=== PATIENT | male | born 1970 | race Caucasian/White ===

== ENCOUNTER 2017-09-04 14:59 | Outpatient (RCR) | payer MEDICARE, MEDICAID, SELFPAY ==
[2017-09-04 17:26] LABS: Absolute Neutrophil Count 2.9 X10^3/uL (2.0-7.7); Basophil# 0.01 X10^3/uL; Basophil% 0.3 % (0-1); Hematocrit 40.2 % (40-54); Hemoglobin 13.1 g/dl (13.0-16.5); Lymphocyte % 20.6 % (19-41); Mean Corp Hgb Conc 32.6 g/gl (32-36); Mean Corpuscular Hgb 28.1 pg (27.0-32.0); Mean Corpuscular Volume 86.1 fL (80-94); Mean Platelet Vol. 9.6 fl (6.2-12.0); Monocyte# 0.23 X10^3/uL; Monocyte% 5.9 % (0-10); Neutrophil # 2.85 X10^3/uL (2.7-7.7); Neutrophil % 73.2 % (47-70); Platelet Count 95 K/mm3 (150-450); RBC Distribution Width CV 14.4 % (11.6-14.6); Red Blood Count 4.67 M/mm3 (4.6-6.2); White Blood Count 3.9 K/mm3 (4.4-11.0)
[2017-09-04 17:30] LABS: POSITIVE COUNT NO; POSITIVE DIFFERENTIAL NO; POSITIVE MORPHOLOGY NO
== END 2017-09-04 15:30 | disposition home or self-care (01) ==
LOC: LAB 14:59
PROVIDERS: Family Provider Family Medicine; PCP Family Medicine; Visit Provider Psychiatry & Neurology Psychiatry
DX: Z79.899 Other long term (current) drug therapy (principal)
CPT/HCPCS: 36415; 85025

== ENCOUNTER 2017-09-15 13:32 | Outpatient (RCR) | payer MEDICARE, MEDICAID, SELFPAY ==
[2017-09-15 15:04] LABS: Absolute Lymphocyte Count 0.64 X10^3/ul (0.83-4.51); Absolute Neutrophil Count 1.8 X10^3/uL (2.0-7.7); Basophil# 0.01 X10^3/uL; Basophil% 0.4 % (0-1); Hematocrit 39.5 % (40-54); Hemoglobin 13.1 g/dl (13.0-16.5); Lymphocyte # 0.64 X10^3/ul (4.0); Lymphocyte % 23.9 % (19-41); Mean Corp Hgb Conc 33.2 g/gl (32-36); Mean Corpuscular Hgb 28.5 pg (27.0-32.0); Mean Corpuscular Volume 85.9 fL (80-94); Mean Platelet Vol. 10.2 fl (6.2-12.0); Monocyte# 0.22 X10^3/uL; Monocyte% 8.2 % (0-10); Neutrophil # 1.81 X10^3/uL (2.7-7.7); Neutrophil % 67.5 % (47-70); Platelet Count 107 K/mm3 (150-450); RBC Distribution Width CV 14.4 % (11.6-14.6); RBC Distribution Width SD 44.4 fl (35.1-43.9); White Blood Count 2.7 K/mm3 (4.4-11.0)
[2017-09-15 15:10] LABS: POSITIVE COUNT NO; POSITIVE DIFFERENTIAL NO; POSITIVE MORPHOLOGY NO
== END 2017-09-15 14:00 | disposition home or self-care (01) ==
LOC: LAB 13:32
PROVIDERS: Family Provider Family Medicine; PCP Family Medicine; Visit Provider Psychiatry & Neurology Psychiatry
DX: Z79.899 Other long term (current) drug therapy (principal)
CPT/HCPCS: 36415; 85025

== ENCOUNTER 2017-10-21 13:40 | Outpatient (RCR) | payer MEDICARE, MEDICAID, SELFPAY ==
[2017-10-21 14:08] LABS: Absolute Lymphocyte Count 0.75 X10^3/ul (0.83-4.51); Absolute Neutrophil Count 2.5 X10^3/uL (2.0-7.7); Basophil# 0.02 X10^3/uL; Basophil% 0.6 % (0-1); Hematocrit 39.6 % (40-54); Hemoglobin 13.2 g/dl (13.0-16.5); Lymphocyte # 0.75 X10^3/ul (4.0); Lymphocyte % 21.8 % (19-41); Mean Corp Hgb Conc 33.3 g/gl (32-36); Mean Corpuscular Hgb 28.6 pg (27.0-32.0); Mean Corpuscular Volume 85.9 fL (80-94); Mean Platelet Vol. 10.4 fl (6.2-12.0); Monocyte% 5.8 % (0-10); Neutrophil # 2.47 X10^3/uL (2.7-7.7); Neutrophil % 71.8 % (47-70); Platelet Count 102 K/mm3 (150-450); RBC Distribution Width CV 14.8 % (11.6-14.6); RBC Distribution Width SD 45.2 fl (35.1-43.9); Red Blood Count 4.61 M/mm3 (4.6-6.2); White Blood Count 3.4 K/mm3 (4.4-11.0)
[2017-10-21 14:09] LABS: POSITIVE COUNT NO; POSITIVE DIFFERENTIAL NO; POSITIVE MORPHOLOGY NO
== END 2017-10-21 14:00 | disposition home or self-care (01) ==
LOC: LAB 13:40
PROVIDERS: Family Provider Family Medicine; PCP Family Medicine; Visit Provider Psychiatry & Neurology Psychiatry
DX: Z79.899 Other long term (current) drug therapy (principal); F19.10 Other psychoactive substance abuse, uncomplicated; R53.83 Other fatigue
CPT/HCPCS: 36415; 85025

== ENCOUNTER 2017-11-17 13:06 | Outpatient (RCR) | payer MEDICARE, MEDICAID, SELFPAY ==
[2017-11-17 13:40] LABS: Absolute Neutrophil Count 2.1 X10^3/uL (2.0-7.7); Basophil# 0.01 X10^3/uL; Basophil% 0.3 % (0-1); Hematocrit 41.3 % (40-54); Hemoglobin 13.4 g/dl (13.0-16.5); Lymphocyte % 25.9 % (19-41); Mean Corp Hgb Conc 32.4 g/gl (32-36); Mean Corpuscular Volume 86.4 fL (80-94); Mean Platelet Vol. 9.7 fl (6.2-12.0); Monocyte# 0.15 X10^3/uL; Monocyte% 4.9 % (0-10); Neutrophil # 2.13 X10^3/uL (2.7-7.7); Neutrophil % 68.9 % (47-70); Platelet Count 95 K/mm3 (150-450); RBC Distribution Width CV 14.7 % (11.6-14.6); RBC Distribution Width SD 46.5 fl (35.1-43.9); Red Blood Count 4.78 M/mm3 (4.6-6.2); White Blood Count 3.1 K/mm3 (4.4-11.0)
[2017-11-17 13:41] LABS: POSITIVE COUNT NO; POSITIVE DIFFERENTIAL NO; POSITIVE MORPHOLOGY NO
== END 2017-11-17 14:00 | disposition home or self-care (01) ==
LOC: LAB 13:06
PROVIDERS: Family Provider Family Medicine; PCP Family Medicine; Visit Provider Psychiatry & Neurology Psychiatry
DX: Z79.899 Other long term (current) drug therapy (principal)
CPT/HCPCS: 36415; 85025

== ENCOUNTER 2018-01-06 13:18 | Outpatient (RCR) | payer MEDICARE, MEDICAID, SELFPAY ==
[2018-01-06 14:10] LABS: Absolute Lymphocyte Count 0.94 X10^3/ul (0.83-4.51); Absolute Neutrophil Count 1.9 X10^3/uL (2.0-7.7); Basophil# 0.01 X10^3/uL; Basophil% 0.3 % (0-1); Hemoglobin 12.8 g/dl (13.0-16.5); Lymphocyte # 0.94 X10^3/ul (4.0); Lymphocyte % 31.9 % (19-41); Mean Corp Hgb Conc 32.8 g/gl (32-36); Mean Corpuscular Hgb 28.3 pg (27.0-32.0); Mean Corpuscular Volume 86.3 fL (80-94); Mean Platelet Vol. 9.6 fl (6.2-12.0); Monocyte# 0.13 X10^3/uL; Monocyte% 4.4 % (0-10); Neutrophil # 1.87 X10^3/uL (2.7-7.7); Neutrophil % 63.4 % (47-70); Platelet Count 87 K/mm3 (150-450); RBC Distribution Width CV 14.3 % (11.6-14.6); Red Blood Count 4.52 M/mm3 (4.6-6.2)
[2018-01-06 14:18] LABS: POSITIVE COUNT NO; POSITIVE DIFFERENTIAL NO; POSITIVE MORPHOLOGY NO
[2018-01-06 14:43] LABS: Hemoglobin A1c 5.9 % (4.2-6.3)
== END 2018-01-06 14:00 | disposition home or self-care (01) ==
LOC: LAB 13:18
PROVIDERS: Family Provider Family Medicine; PCP Family Medicine; Visit Provider Psychiatry & Neurology Psychiatry
DX: Z79.899 Other long term (current) drug therapy (principal)
CPT/HCPCS: 36415; 83036; 85025

== ENCOUNTER 2018-01-16 14:13 | Outpatient (RCR) | payer MEDICARE, MEDICAID, SELFPAY ==
[2018-01-16 14:49] LABS: Absolute Lymphocyte Count 0.57 X10^3/ul (0.83-4.51); Absolute Neutrophil Count 2.3 X10^3/uL (2.0-7.7); Basophil# 0.01 X10^3/uL; Basophil% 0.3 % (0-1); Differential Indicated SCAN CRITERIA MET; Hematocrit 37.1 % (40-54); Hemoglobin 12.3 g/dl (13.0-16.5); Lymphocyte # 0.57 X10^3/ul (4.0); Lymphocyte % 18.6 % (19-41); Mean Corp Hgb Conc 33.2 g/gl (32-36); Mean Corpuscular Hgb 28.8 pg (27.0-32.0); Mean Corpuscular Volume 86.9 fL (80-94); Mean Platelet Vol. 9.6 fl (6.2-12.0); Monocyte# 0.18 X10^3/uL; Monocyte% 5.9 % (0-10); Neutrophil # 2.29 X10^3/uL (2.7-7.7); Neutrophil % 74.9 % (47-70); POSITIVE COUNT NO; POSITIVE DIFFERENTIAL YES; POSITIVE MORPHOLOGY NO; Platelet Count 105 K/mm3 (150-450); RBC Distribution Width CV 14.7 % (11.6-14.6); RBC Distribution Width SD 45.6 fl (35.1-43.9); Red Blood Count 4.27 M/mm3 (4.6-6.2); White Blood Count 3.1 K/mm3 (4.4-11.0)
[2018-01-16 15:08] LABS: Hemoglobin A1c 5.8 % (4.2-6.3)
[2018-01-19 14:25] LABS: Pathologist Review Reviewed
== END 2018-01-16 15:00 | disposition home or self-care (01) ==
LOC: LAB 14:13
PROVIDERS: Family Provider Family Medicine; PCP Family Medicine; Visit Provider Psychiatry & Neurology Psychiatry
DX: Z79.899 Other long term (current) drug therapy (principal)
CPT/HCPCS: 36415; 83036; 85025

== ENCOUNTER 2018-02-19 14:04 | Outpatient (RCR) | payer MEDICARE, MEDICAID, SELFPAY ==
[2018-02-19 14:31] LABS: Absolute Lymphocyte Count 0.85 X10^3/ul (0.83-4.51); Absolute Neutrophil Count 2.5 X10^3/uL (2.0-7.7); Basophil# 0.01 X10^3/uL; Basophil% 0.3 % (0-1); Hematocrit 39.7 % (40-54); Lymphocyte # 0.85 X10^3/ul (4.0); Mean Corp Hgb Conc 32.7 g/gl (32-36); Mean Corpuscular Hgb 28.5 pg (27.0-32.0); Mean Corpuscular Volume 87.1 fL (80-94); Mean Platelet Vol. 9.6 fl (6.2-12.0); Monocyte# 0.21 X10^3/uL; Monocyte% 5.9 % (0-10); Neutrophil # 2.47 X10^3/uL (2.7-7.7); Neutrophil % 69.8 % (47-70); Platelet Count 86 K/mm3 (150-450); RBC Distribution Width CV 14.5 % (11.6-14.6); RBC Distribution Width SD 46.1 fl (35.1-43.9); Red Blood Count 4.56 M/mm3 (4.6-6.2); White Blood Count 3.5 K/mm3 (4.4-11.0)
[2018-02-19 14:50] LABS: POSITIVE COUNT NO; POSITIVE DIFFERENTIAL NO; POSITIVE MORPHOLOGY NO
== END 2018-02-19 15:00 | disposition home or self-care (01) ==
LOC: LAB 14:04
PROVIDERS: Family Provider Family Medicine; PCP Family Medicine; Visit Provider Psychiatry & Neurology Psychiatry
DX: Z79.899 Other long term (current) drug therapy (principal)
CPT/HCPCS: 36415; 85025

== ENCOUNTER 2018-03-31 13:45 | Outpatient (RCR) | payer MEDICARE, MEDICAID, SELFPAY ==
[2018-03-31 15:14] LABS: Absolute Lymphocyte Count 0.76 X10^3/ul (0.83-4.51); Absolute Neutrophil Count 2.4 X10^3/uL (2.0-7.7); Basophil# 0.02 X10^3/uL; Basophil% 0.6 % (0-1); Hematocrit 39.3 % (40-54); Hemoglobin 12.8 g/dl (13.0-16.5); Lymphocyte # 0.76 X10^3/ul (4.0); Mean Corp Hgb Conc 32.6 g/gl (32-36); Mean Corpuscular Hgb 28.1 pg (27.0-32.0); Mean Corpuscular Volume 86.2 fL (80-94); Mean Platelet Vol. 9.9 fl (6.2-12.0); Monocyte# 0.26 X10^3/uL; Monocyte% 7.5 % (0-10); Neutrophil # 2.42 X10^3/uL (2.7-7.7); Neutrophil % 69.9 % (47-70); Platelet Count 95 K/mm3 (150-450); RBC Distribution Width CV 14.4 % (11.6-14.6); RBC Distribution Width SD 45.1 fl (35.1-43.9); Red Blood Count 4.56 M/mm3 (4.6-6.2); White Blood Count 3.5 K/mm3 (4.4-11.0)
[2018-03-31 15:15] LABS: POSITIVE COUNT NO; POSITIVE DIFFERENTIAL NO; POSITIVE MORPHOLOGY NO
== END 2018-03-31 15:00 | disposition home or self-care (01) ==
LOC: LAB 13:45
PROVIDERS: Family Provider Family Medicine; PCP Family Medicine; Visit Provider Psychiatry & Neurology Psychiatry
DX: Z79.899 Other long term (current) drug therapy (principal)
CPT/HCPCS: 36415; 85025

== ENCOUNTER 2018-04-27 10:21 | Outpatient (RCR) | payer MEDICARE, MEDICAID, SELFPAY ==
[2018-04-27 11:43] LABS: Absolute Lymphocyte Count 0.55 X10^3/ul (0.83-4.51); Absolute Neutrophil Count 2.3 X10^3/uL (2.0-7.7); Basophil# 0.01 X10^3/uL; Basophil% 0.3 % (0-1); Hematocrit 38.8 % (40-54); Hemoglobin 12.6 g/dl (13.0-16.5); Lymphocyte # 0.55 X10^3/ul (4.0); Lymphocyte % 18.5 % (19-41); Mean Corp Hgb Conc 32.5 g/gl (32-36); Mean Corpuscular Hgb 28.1 pg (27.0-32.0); Mean Corpuscular Volume 86.4 fL (80-94); Monocyte# 0.16 X10^3/uL; Monocyte% 5.4 % (0-10); Neutrophil # 2.25 X10^3/uL (2.7-7.7); Neutrophil % 75.8 % (47-70); Platelet Count 97 K/mm3 (150-450); RBC Distribution Width CV 14.4 % (11.6-14.6); RBC Distribution Width SD 45.9 fl (35.1-43.9); Red Blood Count 4.49 M/mm3 (4.6-6.2)
[2018-04-27 11:44] LABS: POSITIVE COUNT NO; POSITIVE DIFFERENTIAL YES; POSITIVE MORPHOLOGY NO
[2018-04-27 11:45] LABS: Differential Indicated SCAN CRITERIA MET
== END 2018-04-27 12:00 | disposition home or self-care (01) ==
LOC: LAB 10:21
PROVIDERS: Family Provider Family Medicine; PCP Family Medicine; Referring Provider Psychiatry & Neurology Psychiatry; Visit Provider Psychiatry & Neurology Psychiatry
DX: Z79.899 Other long term (current) drug therapy (principal)
CPT/HCPCS: 36415; 85025

== ENCOUNTER 2018-06-09 13:51 | Outpatient (RCR) | payer MEDICARE, MEDICAID, SELFPAY ==
[2018-06-02 10:29] LABS: Absolute Lymphocyte Count 0.63 X10^3/ul (0.83-4.51); Absolute Neutrophil Count 1.6 X10^3/uL (2.0-7.7); Basophil# 0.02 X10^3/uL; Basophil% 0.8 % (0-1); Hematocrit 38.2 % (40-54); Hemoglobin 12.3 g/dl (13.0-16.5); Lymphocyte # 0.63 X10^3/ul (4.0); Lymphocyte % 25.5 % (19-41); Mean Corp Hgb Conc 32.2 g/gl (32-36); Mean Corpuscular Hgb 28.2 pg (27.0-32.0); Mean Corpuscular Volume 87.6 fL (80-94); Mean Platelet Vol. 10.1 fl (6.2-12.0); Monocyte% 8.1 % (0-10); Neutrophil # 1.61 X10^3/uL (2.7-7.7); Neutrophil % 65.2 % (47-70); Platelet Count 104 K/mm3 (150-450); RBC Distribution Width CV 14.5 % (11.6-14.6); Red Blood Count 4.36 M/mm3 (4.6-6.2); White Blood Count 2.5 K/mm3 (4.4-11.0)
[2018-06-02 10:36] LABS: POSITIVE COUNT NO; POSITIVE DIFFERENTIAL NO; POSITIVE MORPHOLOGY NO
[2018-06-09 15:17] LABS: Absolute Neutrophil Count 2.5 X10^3/uL (2.0-7.7); Basophil% 0.3 % (0-1); Hematocrit 40.7 % (40-54); Hemoglobin 13.1 g/dl (13.0-16.5); Lymphocyte # 0.62 X10^3/ul (4.0); Lymphocyte % 18.7 % (19-41); Mean Corp Hgb Conc 32.2 g/gl (32-36); Mean Corpuscular Hgb 27.8 pg (27.0-32.0); Mean Corpuscular Volume 86.4 fL (80-94); Mean Platelet Vol. 9.7 fl (6.2-12.0); Monocyte% 5.7 % (0-10); Neutrophil # 2.49 X10^3/uL (2.7-7.7); Neutrophil % 75.3 % (47-70); Platelet Count 97 K/mm3 (150-450); RBC Distribution Width CV 14.4 % (11.6-14.6); RBC Distribution Width SD 45.4 fl (35.1-43.9); Red Blood Count 4.71 M/mm3 (4.6-6.2); White Blood Count 3.3 K/mm3 (4.4-11.0)
[2018-06-09 15:18] LABS: Absolute Lymphocyte Count 0.62 X10^3/ul (0.83-4.51); Basophil# 0.01 X10^3/uL; Monocyte# 0.19 X10^3/uL
[2018-06-09 15:42] LABS: POSITIVE COUNT NO; POSITIVE DIFFERENTIAL NO; POSITIVE MORPHOLOGY NO
== END 2018-06-12 09:26 | disposition home or self-care (01) ==
LOC: LAB 13:51
PROVIDERS: Family Provider Family Medicine; PCP Family Medicine; Referring Provider Psychiatry & Neurology Psychiatry; Visit Provider Psychiatry & Neurology Psychiatry
DX: Z79.899 Other long term (current) drug therapy (principal)
CPT/HCPCS: 36415; 80346; 85025; G0480

== ENCOUNTER 2018-06-22 13:12 | Outpatient (RCR) | payer MEDICARE, MEDICAID, SELFPAY ==
[2018-06-22 14:08] LABS: Absolute Lymphocyte Count 0.65 X10^3/ul (0.83-4.51); Absolute Neutrophil Count 2.5 X10^3/uL (2.0-7.7); Basophil# 0.01 X10^3/uL; Basophil% 0.3 % (0-1); Hematocrit 39.2 % (40-54); Hemoglobin 12.8 g/dl (13.0-16.5); Lymphocyte # 0.65 X10^3/ul (4.0); Lymphocyte % 19.2 % (19-41); Mean Corp Hgb Conc 32.7 g/gl (32-36); Mean Corpuscular Hgb 27.9 pg (27.0-32.0); Mean Corpuscular Volume 85.4 fL (80-94); Mean Platelet Vol. 10.1 fl (6.2-12.0); Monocyte% 5.9 % (0-10); Neutrophil # 2.52 X10^3/uL (2.7-7.7); Neutrophil % 74.6 % (47-70); Platelet Count 87 K/mm3 (150-450); RBC Distribution Width CV 14.8 % (11.6-14.6); RBC Distribution Width SD 46.1 fl (35.1-43.9); Red Blood Count 4.59 M/mm3 (4.6-6.2); White Blood Count 3.4 K/mm3 (4.4-11.0)
[2018-06-22 14:10] LABS: POSITIVE COUNT NO; POSITIVE DIFFERENTIAL NO; POSITIVE MORPHOLOGY NO
[2018-06-22 14:25] LABS: Hemoglobin A1c 6.5 % (4.2-6.3)
== END 2018-06-22 14:00 | disposition home or self-care (01) ==
LOC: LAB 13:12
PROVIDERS: Family Provider Family Medicine; PCP Family Medicine; Referring Provider Psychiatry & Neurology Psychiatry; Visit Provider Psychiatry & Neurology Psychiatry
DX: Z79.899 Other long term (current) drug therapy (principal)
CPT/HCPCS: 36415; 83036; 85025

== ENCOUNTER 2018-07-22 12:43 | Outpatient (RCR) | payer MEDICARE, MEDICAID, SELFPAY ==
[2018-07-22 13:33] LABS: Absolute Lymphocyte Count 0.61 X10^3/ul (0.83-4.51); Absolute Neutrophil Count 2.1 X10^3/uL (2.0-7.7); Basophil# 0.02 X10^3/uL; Basophil% 0.7 % (0-1); Hematocrit 40.3 % (40-54); Hemoglobin 12.9 g/dl (13.0-16.5); Lymphocyte # 0.61 X10^3/ul (4.0); Mean Corpuscular Hgb 27.9 pg (27.0-32.0); Mean Platelet Vol. 10.2 fl (6.2-12.0); Monocyte# 0.19 X10^3/uL; Monocyte% 6.6 % (0-10); Neutrophil # 2.07 X10^3/uL (2.7-7.7); Neutrophil % 71.4 % (47-70); Platelet Count 91 K/mm3 (150-450); RBC Distribution Width CV 14.9 % (11.6-14.6); Red Blood Count 4.63 M/mm3 (4.6-6.2); White Blood Count 2.9 K/mm3 (4.4-11.0)
[2018-07-22 13:38] LABS: POSITIVE COUNT NO; POSITIVE DIFFERENTIAL NO; POSITIVE MORPHOLOGY NO
== END 2018-07-22 13:43 | disposition home or self-care (01) ==
LOC: LAB 12:43
PROVIDERS: Family Provider Family Medicine; PCP Family Medicine; Referring Provider Psychiatry & Neurology Psychiatry; Visit Provider Psychiatry & Neurology Psychiatry
DX: Z79.899 Other long term (current) drug therapy (principal)
CPT/HCPCS: 36415; 85025

== ENCOUNTER 2018-08-27 14:27 | Outpatient (RCR) | payer MEDICARE, MEDICAID, SELFPAY ==
[2018-08-27 15:03] LABS: Absolute Lymphocyte Count 0.85 X10^3/ul (0.83-4.51); Absolute Neutrophil Count 2.2 X10^3/uL (2.0-7.7); Basophil# 0.04 X10^3/uL; Basophil% 1.2 % (0-1); Hematocrit 39.8 % (40-54); Hemoglobin 12.8 g/dl (13.0-16.5); Lymphocyte # 0.85 X10^3/ul (4.0); Lymphocyte % 25.4 % (19-41); Mean Corp Hgb Conc 32.2 g/gl (32-36); Mean Corpuscular Hgb 27.8 pg (27.0-32.0); Mean Corpuscular Volume 86.5 fL (80-94); Mean Platelet Vol. 9.9 fl (6.2-12.0); Monocyte# 0.28 X10^3/uL; Monocyte% 8.4 % (0-10); Neutrophil # 2.18 X10^3/uL (2.7-7.7); Platelet Count 102 K/mm3 (150-450); RBC Distribution Width CV 14.8 % (11.6-14.6); RBC Distribution Width SD 46.4 fl (35.1-43.9); White Blood Count 3.4 K/mm3 (4.4-11.0)
[2018-08-27 15:04] LABS: POSITIVE COUNT NO; POSITIVE DIFFERENTIAL NO; POSITIVE MORPHOLOGY NO
== END 2018-09-10 14:50 | disposition home or self-care (01) ==
LOC: LAB 14:27
PROVIDERS: Family Provider Family Medicine; PCP Family Medicine; Referring Provider Psychiatry & Neurology Psychiatry; Visit Provider Psychiatry & Neurology Psychiatry
DX: Z79.899 Other long term (current) drug therapy (principal); Z51.81 Encounter for therapeutic drug level monitoring
CPT/HCPCS: 36415; 85025

== ENCOUNTER 2018-09-14 14:45 | Outpatient (RCR) | payer MEDICARE, MEDICAID, SELFPAY ==
[2018-09-14 15:44] LABS: Absolute Lymphocyte Count 0.69 X10^3/ul (0.83-4.51); Absolute Neutrophil Count 2.2 X10^3/uL (2.0-7.7); Eosinophil# 0.01 X10^3/uL; Eosinophils% 0.3 % (0-5); Hematocrit 36.4 % (40-54); Hemoglobin 11.9 g/dl (13.0-16.5); Lymphocyte # 0.69 X10^3/ul (4.0); Lymphocyte % 22.2 % (19-41); Mean Corp Hgb Conc 32.7 g/gl (32-36); Mean Corpuscular Hgb 28.4 pg (27.0-32.0); Mean Corpuscular Volume 86.9 fL (80-94); Mean Platelet Vol. 9.8 fl (6.2-12.0); Monocyte# 0.18 X10^3/uL; Monocyte% 5.8 % (0-10); Neutrophil # 2.22 X10^3/uL (2.7-7.7); Neutrophil % 71.4 % (47-70); Platelet Count 78 K/mm3 (150-450); RBC Distribution Width CV 15.3 % (11.6-14.6); RBC Distribution Width SD 48.1 fl (35.1-43.9); Red Blood Count 4.19 M/mm3 (4.6-6.2); White Blood Count 3.1 K/mm3 (4.4-11.0)
[2018-09-14 15:52] LABS: POSITIVE COUNT NO; POSITIVE DIFFERENTIAL NO; POSITIVE MORPHOLOGY NO
== END 2018-09-14 15:45 | disposition home or self-care (01) ==
LOC: LAB 14:45
PROVIDERS: Family Provider Family Medicine; PCP Family Medicine; Referring Provider Psychiatry & Neurology Psychiatry; Visit Provider Psychiatry & Neurology Psychiatry
DX: Z79.899 Other long term (current) drug therapy (principal)
CPT/HCPCS: 36415; 85025

== ENCOUNTER 2018-10-14 13:42 | Outpatient (RCR) | payer MEDICARE, MEDICAID, SELFPAY ==
[2018-10-14 14:36] LABS: Absolute Lymphocyte Count 0.74 X10^3/ul (0.83-4.51); Absolute Neutrophil Count 1.7 X10^3/uL (2.0-7.7); Basophil# 0.01 X10^3/uL; Basophil% 0.4 % (0-1); Hematocrit 39.4 % (40-54); Hemoglobin 12.6 g/dl (13.0-16.5); Lymphocyte # 0.74 X10^3/ul (4.0); Mean Corpuscular Hgb 27.8 pg (27.0-32.0); Mean Platelet Vol. 9.5 fl (6.2-12.0); Monocyte# 0.25 X10^3/uL; Monocyte% 9.1 % (0-10); Neutrophil # 1.74 X10^3/uL (2.7-7.7); Neutrophil % 63.5 % (47-70); Platelet Count 77 K/mm3 (150-450); RBC Distribution Width CV 14.4 % (11.6-14.6); RBC Distribution Width SD 45.9 fl (35.1-43.9); Red Blood Count 4.53 M/mm3 (4.6-6.2); White Blood Count 2.7 K/mm3 (4.4-11.0)
[2018-10-14 14:48] LABS: POSITIVE COUNT NO; POSITIVE DIFFERENTIAL NO; POSITIVE MORPHOLOGY NO
== END 2018-11-10 16:00 | disposition home or self-care (01) ==
LOC: LAB 13:42
PROVIDERS: Psychiatry & Neurology Psychiatry; Family Provider Family Medicine; PCP Family Medicine; Referring Provider Psychiatry & Neurology Psychiatry; Visit Provider Psychiatry & Neurology Psychiatry
DX: Z79.899 Other long term (current) drug therapy (principal)
CPT/HCPCS: 36415; 85025

== ENCOUNTER → 2019-01-28 | Outpatient (CLI) | payer MEDICARE, MEDICAID, SELFPAY ==
[2019-01-28 09:51] LABS: Absolute Lymphocyte Count 0.51 X10^3/uL (0.83-4.51); Basophil# 0.01 X10^3/uL; Basophil% 0.3 % (0-1); Hematocrit 35.6 % (40-54); Hemoglobin 11.6 g/dL (13.0-16.5); Lymphocyte # 0.51 X10^3/ul (4.0); Lymphocyte % 16.6 % (19-41); Mean Corp Hgb Conc 32.6 g/dL (32-36); Mean Corpuscular Hgb 27.4 pg (27.0-32.0); Mean Corpuscular Volume 84.2 fL (80-94); Mean Platelet Vol. 10.2 fl (6.2-12.0); Monocyte# 0.36 X10^3/uL; Monocyte% 11.7 % (0-10); NRBC Flagged by Analyzer 0 % (0-5); Neutrophil # 2.19 X10^3/uL (2.7-7.7); Neutrophil % 71.1 % (47-70); POSITIVE DIFFERENTIAL YES; Platelet Count 107 K/mm3 (150-450); RBC Distribution Width CV 14.4 % (11.6-14.6); RBC Distribution Width SD 43.8 fl (35.1-43.9); Red Blood Count 4.23 M/mm3 (4.6-6.2); White Blood Count 3.1 K/mm3 (4.4-11.0)
[2019-01-28 10:01] LABS: Differential Indicated SCAN CRITERIA MET
[2019-01-28 10:48] LABS: Platelet Estimate MOD DEC (ADEQ)
[2019-01-28 10:49] LABS: Differential Comment SCANNED
[2019-01-28 15:29] LABS: Pathologist Review Reviewed
== END | disposition home or self-care (01) ==
LOC: LAB 08:00
PROVIDERS: Family Provider Family Medicine; PCP Family Medicine; Referring Provider Psychiatry & Neurology Psychiatry; Visit Provider Psychiatry & Neurology Psychiatry
DX: Z79.899 Other long term (current) drug therapy (principal)
CPT/HCPCS: 36415; 85025

== ENCOUNTER 2019-05-23 13:55 | Emergency (ER) | payer MEDICARE, SELFPAY ==
[2019-05-23 13:57] VITALS: BP 144/64; PULSE 119; RESP 18; TEMP 36.8; O2SAT 97; BMI 33.7
--- NOTE | 2019-05-23 14:48 | EKG12_ITS ---
Test Reason : GI BLEED Blood Pressure : / mmHG Vent. Rate : 116 BPM Atrial Rate : 116 BPM P-R Int : 138 ms QRS Dur : 098 ms QT Int : 332 ms P-R-T Axes : 050 -35 017 degrees QTc Int : 461 ms Sinus tachycardia Left axis deviation Incomplete right bundle branch block Possible Lateral infarct , age undetermined Abnormal ECG Confirmed by HALEIGH FROST, SHANTAL ([id number]), advertising editor CHEYENNE OLVERA ([id number]) on 05/25/2019 2:27:23 PM Referred By: YOUSUF Confirmed By:SHANTAL RICARDO MD
--- NOTE | 2019-05-23 14:49 | ED.VIS.GEN ---
History of Present Illness Chief Complaint: GI Bleed Detail of Chief Complaint: Blood x2 since last evening Informant: Patient, Significant Other Onset: Yesterday Context: Sudden Onset Timing: Intermittent Quality: Bright red blood Location: Upper GI Current Severity: - - Uncertain Maximum Severity: - - Unknown Worsened by: History of banding of varices April 27 Relieved by: Nothing Associated Symptoms: Lightheadedness Narrative: Patient is a middle-age male who has history of cirrhosis secondary to medication he was prescribed 20 years ago. He had an upper GI bleed requiring banding of varices April 27 at [facility]. He presents because he vomited twice since last evening. He states his stool was normal color this morning. He does report feeling fatigued and lightheaded. He does appear pale. He acknowledges that he feels pale. He denies cardiac respiratory symptoms. Prior similar symptoms: Yes Recent Illness/Hospitalization: Yes - Past Medical History (1) History of cirrhosis Status: Acute (2) History of esophageal varices with bleeding Status: Acute (3) Anxiety Status: Chronic (4) Depression Status: Chronic (5) Diabetes mellitus Status: Chronic (6) Schizophrenia Status: Chronic Past Medical History - Allergies and Home Meds Allergies/Adverse Reactions: Allergies Penicillins Allergy (Verified 05/23/19 14:03) Rash LATEX TAPE Allergy (Uncoded 05/23/19 14:03) Rash BEE STINGS Adverse Reaction (Uncoded 05/23/19 14:03) Other Primary Care Physician: Trevor Acuna MD [Primary Care Provider] - Prior records reviewed: Yes Surgical History: - - Sebaceous cyst drainage Lives: Spouse/ Significant Other Smoking Status: Former smoker Alcohol: None Drugs: None - Family History Maternal Family History: Reports: No pertinent history Review of Systems General: Denies: Chills, Fever, Sweats Eyes: Denies: Visual changes - bilaterally, Blurred Vision - bilaterally, Diplopia ENT: Denies: Bilateral ear pain, Rhinorrhea, Sore throat Cardiovascular: Denies: Chest pain, Palpitations Respiratory: Reports: Dyspnea, Dyspnea on exertion. Denies: Orthopnea Gastrointestinal: Reports: Nausea, Vomiting, - - Hematemesis. Denies: Abdominal pain, Diarrhea, Constipation, Melena, Hematochezia, - Genitourinary: Denies: Dysuria, Hematuria, Frequency Musculoskeletal: Denies: Myalgias, Arthralgias, Neck pain, Back pain, Extremity Pain Skin: Denies: Rash, Wounds Neurological: Reports: Weakness Psych: Reports: Anxiety Hematologic: Denies: Easy bruising, Easy bleeding Allergy: Denies: Uticaria, Swelling of the mouth, Swelling of the tongue Physical Exam Vital Signs/Narrative: Vital Signs Temp Pulse Resp BP Pulse Ox 05/23/19 13:57 98.3 F 119 H 18 144/64 H 97 Inital Vital Signs reviewed: Yes General: Well nourished, Well developed, No Acute Distress Head: Normocephalic, Atraumatic Eyes: Perrl, EOMI, Pale conjunctiva. Negative for: Scleral icterus ENT: Moist mucous membranes, No rhinorrhea Neck: Supple, Nontender Cardiovascular: Regular rhythm, No murmurs, Normal S1, Tachycardia Respiratory: No distress, CTA bilaterally, Chest nontender Abdomen: Soft, Nontender, Nondistended, Normal bowel sounds Rectal: - - Stool appears black Back: Nontender, Normal Inspection. Negative for: CVA tenderness Extremities: Nontender, No edema Skin: No rash, Pallor. Negative for: Cyanosis, Diaphoresis, Jaundice Neurological: Alert, Oriented x3, Cranial nerves II-XII grossly intact, Normal Strength, Normal Sensation Psychological: Normal affect, Normal Mood Diagnostic/Tx/Re-eval Chest X-Ray - ED: 1 View, Read by ED Physician, - - Single view chest/KUB reveals NG in the right main bronchus and reason there is no gastric contents with aspiration. When the NG was placed per nursing staff they documented that good sounds were noted over the epigastrium with insufflation. Plan is to remove NG and re-insert to assess if patient is actively bleeding which will affect his disposition and placement. 05/23/19 15:18 KUB [Abdomen Single View] [RAD] Stat 05/23/19 15:25 KUB [Abdomen Single View] [RAD] Stat 05/23/19 14:45 Stool Stool Occult Blood (ROSA) - Final Occult Blood Positive Laboratory Results 05/23/19 05/23/19 05/23/19 14:45 14:45 14:45 WBC 4.9 RBC 2.62 L Hgb 7.5 L Hct 23.1 L MCV 88.2 MCH 28.6 MCHC 32.5 RDW Std Deviation 50.5 H RDW Coeff of Joellen 16.1 H Plt Count 114 L MPV 11.0 PT Cancelled INR Cancelled APTT Cancelled Sodium 137 Potassium 4.4 Chloride 104 Carbon Dioxide 20.0 L Anion Gap 13 BUN 40 H Creatinine 1.23 Estim Creat Clear Calc 78.86 Est GFR (MDRD) Af Amer 80 Est GFR (MDRD) Non-Af 66 BUN/Creatinine Ratio 32.5 H Glucose 344 H Lactic Acid Calcium 9.0 Total Bilirubin 1.00 AST 23 ALT 22 Alkaline Phosphatase 87 Total Protein 6.9 Albumin 3.1 L Globulin 3.8 Albumin/Globulin Ratio 0.8 L 05/23/19 14:55 WBC RBC Hgb Hct MCV MCH MCHC RDW Std Deviation RDW Coeff of Joellen Plt Count MPV PT INR APTT Sodium Potassium Chloride Carbon Dioxide Anion Gap BUN Creatinine Estim Creat Clear Calc Est GFR (MDRD) Af Amer Est GFR (MDRD) Non-Af BUN/Creatinine Ratio Glucose Lactic Acid 6.0 H* Calcium Total Bilirubin AST ALT Alkaline Phosphatase Total Protein Albumin Globulin Albumin/Globulin Ratio Apparently PT/INR and PTT were canceled because of hemolysis. Hemoglobin 7.5 which is greater than 4 g drop from prior. Lactate is 6.0. Patient did receive fluid bolus. He was started on octreotide, he also received Protonix IV push and Protonix infusion. Since he reports allergy to penicillin he was given meropenem. Suspect patient has variceal bleed since NG is positive for red/maroon blood. Call was initiated to [facility] after seen patient. - Rhythm Strip Rhythm Strip: Sinus Tach Rate: 129 Ectopy: None - EKG Initial EKG Interpretation: Sinus Tachycardia - Sinus tachycardia with a ventricular rate of 116. W[place] interval is 138 ms. QS duration 90 ms. QT duration 332 ms. [place] is to the left. There is an hour RR prime morphology in V1. - Medical Decision Making With history of cirrhosis and esophageal varices bleeding requiring banding concern patient has upper GI bleed secondary to variceal bleeding. There is a possibility this may represent upper gastric or duodenal ulcer. NG was replaced. He is actively bleeding will arrange for urgent transfer to [facility] where he was cared for last month. He is been typed and screened. Appropriate blood work has been obtained including coags. EKG to assess for cardiac ischemia. He received a fluid bolus. Monitor reveals a sinus tachycardia of 129. He is not hypotensive. Patient did receive 1 unit of type specific blood since he had a sniffing drop in hemoglobin and is in shock. ED Disposition - Plan for ED Patient: Disposition: [facility] Diagnosis: Hemorrhagic shock, Acute upper gastrointestinal bleeding, Esophageal varices with bleeding, Anemia due to blood loss, acute, Sinus tachycardia, Hyperglycemia due to type 2 diabetes mellitus Referrals: Trevor Acuna MD [Primary Care Provider] -
[2019-05-23 15:09] LABS: Hematocrit 23.1 % (40-54); Hemoglobin 7.5 g/dL (13.0-16.5); Mean Corp Hgb Conc 32.5 g/dL (32-36); Mean Corpuscular Hgb 28.6 pg (27.0-32.0); Mean Corpuscular Volume 88.2 fL (80-94); Platelet Count 114 K/mm3 (150-450); RBC Distribution Width CV 16.1 % (11.6-14.6); RBC Distribution Width SD 50.5 fl (35.1-43.9); Red Blood Count 2.62 M/mm3 (4.6-6.2); White Blood Count 4.9 K/mm3 (4.4-11.0)
[2019-05-23 15:18] LABS: ALB/GLOB Ratio 0.8 RATIO (0.9-2.4); AST(SGOT) 23 U/L (15-37); Alanine Aminotransfer ALT/SGPT 22 U/L (16-61); Albumin, Serum 3.1 g/dL (3.2-5.0); Alkaline Phosphatase 87 U/L (45-117); Anion Gap 13 (5-15); BUN 40 mg/dL (7-18); BUN/Creat Ratio 32.5 RATIO (10-20); Chloride 104 mmol/L (98-107); Creatinine, Serum 1.23 mg/dL (0.70-1.30); EST Glomerular Filtration Rate 66 mL/min (>60); Est Glom Filt Rate - Afr Amer 80 mL/min (>60); Estimated Creatinine Clearance 78.86 ml/min; Globulin 3.8 g/dL (2.2-4.2); Glucose 344 mg/dL (74-106); Potassium 4.4 mmol/L (3.5-5.1); Protein, Total 6.9 g/dL (6.4-8.2); Sodium Level 137 mmol/L (136-145)
--- NOTE | 2019-05-23 15:18 | RAD_ITS ---
STUDY: X-RAY - ABDOMEN/PELVIS REASON FOR EXAM: Male, 49 years old. Nasogastric tube placement TECHNIQUE: Frontal view of the mid to lower chest and upper abdomen COMPARISON: None. FINDINGS: Nasogastric tube traverses into the right mainstem bronchus, into the right lower lobe. Clear lungs. Normal cardiomediastinal silhouette. RAD/Abdomen Single View IMPRESSION: Nasogastric tube tip within right lower lung. This was corrected on subsequent imaging at 1517 hours Electronically Signed: Moe Mcpherson MD at 16:16 EST Tel , Service support ,
--- NOTE | 2019-05-23 15:25 | RAD_ITS ---
STUDY: X-RAY - ABDOMEN/PELVIS REASON FOR EXAM: Male, 49 years old. Nasogastric tube placement TECHNIQUE: Frontal view of the lower chest and upper abdomen. COMPARISON: X-ray abdomen 05/23/2019 FINDINGS: Nasogastric tube traverses the gastric fundus. The proximal port lies in the gastric body and the tip lies in the distal stomach. The lung bases are clear. No significant cardiomegaly. RAD/Abdomen Single View IMPRESSION: Nasogastric tube tip within mid to distal stomach. Electronically Signed: Moe Mcpherson MD at 16:15 EST Tel , Service support ,
[2019-05-23 15:31] VITALS: BP 156/67; PULSE 123; RESP 14; O2SAT 97
[2019-05-23] MEDS: 0.9% Normal Saline 1,000 ML 1000 ML IV (15:34)
--- NOTE | 2019-05-23 15:35 | ED.RN ---
lactic acid 6.0 called from the lab. dr fisher aware
[2019-05-23 15:36] LABS: International Normalized Ratio 1.3; Prothrombin Time (Protime)PT. 16.4 SECONDS (11.7-14.9)
[2019-05-23 15:37] LABS: Partial Thromboplast Time 34.5 Seconds (24.1-36.2)
[2019-05-23] MEDS: Octreotide 0.1 MG/ML ML IV (15:51)
[2019-05-23] MEDS: Insulin Lispro 100 UNIT/ML INSULN.PEN SC (15:52)
[2019-05-23] MEDS: Ondansetron 4 MG/2 ML Vial IV (16:07)
[2019-05-23 16:27] VITALS: BP 150/71; PULSE 111; RESP 18; TEMP 36.8; O2SAT 97
[2019-05-23 16:30] VITALS: BP 144/69; PULSE 116; RESP 14; TEMP 37.3; O2SAT 97
[2019-05-23 16:45] VITALS: BP 148/77; PULSE 114; RESP 16; TEMP 37.1; O2SAT 97
[2019-05-23 16:51] VITALS: BP 149/69; PULSE 119; RESP 14; TEMP 37.3; O2SAT 97
[2019-05-23 19:02] LABS: Reflex Lactate? Y
== END 2019-05-23 17:19 | disposition short-term general hospital (02) ==
PROVIDERS: Emergency Provider Emergency Medicine; Family Provider Family Medicine; PCP Family Medicine
DX: K92.2 Gastrointestinal hemorrhage, unspecified (principal); R57.8 Other shock; I85.01 Esophageal varices with bleeding; D62 Acute posthemorrhagic anemia; E11.65 Type 2 diabetes mellitus with hyperglycemia
CPT/HCPCS: 36430; 74018; 80053; 82274; 83605; 85027; 85610; 85730; 86850; 86900; 86901; 86920; 93005; 96365; 96367; 96368; 96375; 99285; J2185; J7030; J7040; P9016; A4216; J2354; J2405; J3490

== ENCOUNTER 2020-08-03 16:37 | Emergency (ER) | payer OTHER, MEDICARE, SELFPAY ==
[2020-08-03 16:38] VITALS: BP 170/85; PULSE 76; RESP 16; TEMP 35.8; O2SAT 96; BMI 38.3
[2020-08-03 16:40] VITALS: BP 170/85; PULSE 75; RESP 16; TEMP 35.8; O2SAT 97
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
== END 2020-08-03 17:49 | disposition home or self-care (01) ==
LOC: ED 17:39
PROVIDERS: Emergency Provider Emergency Medicine; PCP Family Medicine
DX: S70.11XA Contusion of right thigh, initial encounter (principal); Z87.891 Personal history of nicotine dependence; V43.52XA Car driver injured in collision with other type car in traffic accident, initial encounter; Y93.I9 Activity, other involving external motion; Y92.410 Unspecified street and highway as the place of occurrence of the external cause; Y99.8 Other external cause status
CPT/HCPCS: 73552; 99282

== ENCOUNTER → 2021-10-03 | Outpatient (CLI) | payer MEDICARE, SELFPAY ==
--- NOTE | 2021-10-05 15:52 | EKG12_ITS ---
Test Reason : PREOP Blood Pressure : / mmHG Vent. Rate : 072 BPM Atrial Rate : 072 BPM P-R Int : 144 ms QRS Dur : 132 ms QT Int : 410 ms P-R-T Axes : 037 -55 005 degrees QTc Int : 448 ms Normal sinus rhythm Right bundle branch block Left anterior fascicular block Bifascicular block Abnormal ECG Confirmed by HALEIGH FROST, SHANTAL ([id number]), electronic news gathering editor OMEGA VÁSQUEZ ([id number]) on 10/08/2021 10:42:19 AM Referred By: MIRANDA Confirmed By:SHANTAL RICARDO MD
[2021-10-05 16:43] LABS: Hematocrit 39.5 % (40-54); Hemoglobin 13.6 g/dL (13.0-16.5); Mean Corp Hgb Conc 34.4 g/dL (32-36); Mean Corpuscular Hgb 30.1 pg (27.0-32.0); Mean Corpuscular Volume 87.4 fL (80-94); Mean Platelet Vol. 10.9 fl (6.2-12.0); POSITIVE COUNT YES; Platelet Count 84 K/mm3 (150-450); RBC Distribution Width SD 44.7 fl (35.1-43.9); Red Blood Count 4.52 M/mm3 (4.6-6.2); White Blood Count 4.2 K/mm3 (4.4-11.0)
[2021-10-05 16:45] LABS: Scan Indicated on CBC? Y/N YES- FLAGS NOTED
[2021-10-05 16:47] LABS: Hemoglobin A1c 6.3 % (3.8-5.6)
[2021-10-05 16:58] LABS: International Normalized Ratio 1.2; Prothrombin Time (Protime)PT. 14.6 SECONDS (11.7-14.9)
[2021-10-05 16:59] LABS: Partial Thromboplast Time 32.4 Seconds (24.1-36.2)
[2021-10-05 17:26] LABS: Differential Comment SCANNED
[2021-10-05 17:30] LABS: ALB/GLOB Ratio 0.9 RATIO (0.9-2.4); AST(SGOT) 25 U/L (15-37); Alanine Aminotransfer ALT/SGPT 22 U/L (16-61); Albumin, Serum 3.7 g/dL (3.2-5.0); Alkaline Phosphatase 75 U/L (45-117); Anion Gap 4 (5-15); BUN 14 mg/dL (7-18); BUN/Creat Ratio 14.8 RATIO (10-20); Bilirubin, Direct 0.29 mg/dL (0.00-0.30); Calcium,Total 8.5 mg/dL (8.5-10.1); Chloride 109 mmol/L (98-107); Creatinine, Serum 0.95 mg/dL (0.70-1.30); EST Glomerular Filtration Rate 88 mL/min (>60); Est Glom Filt Rate - Afr Amer 107 mL/min (>60); Globulin 4.1 g/dL (2.2-4.2); Glucose 170 mg/dL (74-106); Magnesium 1.7 mg/dL (1.6-2.6); Phosphorus 2.8 mg/dL (2.5-4.9); Potassium 4.2 mmol/L (3.5-5.1); Protein, Total 7.8 g/dL (6.4-8.2); Sodium Level 140 mmol/L (136-145)
== END | disposition home or self-care (01) ==
LOC: PAT 11-01 13:58
PROVIDERS: Anesthesiology; PCP Family Medicine; Visit Provider Surgery
DX: Z01.818 Encounter for other preprocedural examination (principal); Z01.810 Encounter for preprocedural cardiovascular examination
CPT/HCPCS: 36415; 80053; 82248; 83036; 83735; 84100; 85027; 85610; 85730; 93005